=== PATIENT | male | born 1955 | race Caucasian/White ===

== ENCOUNTER 2021-11-03 18:40 | Inpatient (IN) | payer MEDICARE ==
[~2021-11-03] VITALS: Ht 175.3 cm; Wt 96.6 kg
[2021-11-03] MEDS ORDERED: MORPHINE SULFATE INJ 2 MG/ML DISP.SYRIN IV ONE (19:00)
[2021-11-03] MEDS ORDERED: IV NS 0.9% 1,000 ML BAG IV ONE (19:00)
[2021-11-03] MEDS ORDERED: ONDANSETRON HCL/PF 4 MG/2 ML VIAL IVP ONE (19:00)
--- NOTE | 2021-11-03 19:00 | NUR ---
[id number] from home, c/o abd pain since yesterday worst today +nausea. On room air, breathing normally and unalbored. Connected to the monitor and pulse ox. Kept comfortable, will continue to monitor and pulse ox. kept comfortable, will continue to monitor accordingly.
[2021-11-03] MEDS ORDERED: MORPHINE SULFATE INJ 4 MG/ML DISP.SYRIN ONE (19:10)
[2021-11-03] MEDS ORDERED: ONDANSETRON HCL/PF 4 MG/2 ML VIAL ONE (19:10)
[2021-11-03 20:40] LABS: BASOPHILS % (AUTO) 0.2 % (0.0-2.0); HEMATOCRIT 39 % (39-51); HEMOGLOBIN 12.9 g/dL (13.5-17.5); LYMPHOCYTES # (AUTO) 0.3 K/uL (0.8-4.8); MEAN CORPUSCULAR HGB CONC 33 g/dl (31.0-36.0); MEAN CORPUSCULAR VOLUME 96 fL (80-96); MONOCYTES # (AUTO) 0.1 K/uL (0.1-1.30); NEUTROPHILS % (AUTO) 96.8 % (43.0-81.0); PLATELET COUNT (AUTO) 208 K/uL (150-450); RED BLOOD CELL COUNT(AUTO) 4.02 MIL/uL (4.5-6.0); WHITE BLOOD COUNT (AUTO) 13.4 K/uL (4.3-11.0)
[2021-11-03] MEDS ORDERED: HYDR-4209 PO (21:44)
[2021-11-03 21:50] LABS: ALBUMIN 3.2 g/dL (3.4-5.0); BILIRUBIN,DIRECT 5.5 mg/dL (0.0-0.2); CREATININE 2.3 mg/dL (0.6-1.3); POTASSIUM 4.1 mmol/L (3.5-5.1); TOTAL PROTEIN, SERUM 7.4 g/dL (6.4-8.2)
[2021-11-03 22:20] LABS: CALCIUM, SERUM 10.5 mg/dL (8.5-10.1)
[2021-11-03 22:21] LABS: BAND % (MANUAL) 9 % (0.0-5.0); LYMPHOCYTES % (MANUAL) 4 % (16-48); NEUTROPHILS % (MANUAL) 87 (42-76)
[2021-11-03] MEDS ORDERED: PIPERACILLIN /TAZOBACTAM 3.375 G in IV D5W 50 ML IV ONE (22:30)
[2021-11-03] MEDS ORDERED: PIPERACILLIN /TAZOBACTAM 3.375 G VIAL IV ONE (22:35)
--- NOTE | 2021-11-03 22:54 | NUR ---
covid swab collected and sent to lab.
[2021-11-04] MEDS ORDERED: hydrALAZINE HCL IV 20 MG VIAL IV PRN
[2021-11-04] MEDS ORDERED: ACETAMINOPHEN 325 MG TABLET PO PRN
[2021-11-04] MEDS ORDERED: ONDANSETRON HCL/PF 4 MG/2 ML VIAL IVP PRN
[2021-11-04] MEDS ORDERED: TRAM50TA2 PO (00:07)
[2021-11-04] MEDS ORDERED: CHLO25TA2 PO (00:07)
[2021-11-04] MEDS ORDERED: BENA40TA8 PO (00:07)
[2021-11-04] MEDS ORDERED: ATOR20TA PO (00:07)
[2021-11-04] MEDS ORDERED: AMLO-212 PO (00:07)
[2021-11-04] MEDS ORDERED: IV NS 0.9% 1,000 ML BAG IV ONE (00:30)
--- NOTE | 2021-11-04 00:43 | NUR ---
room 320-1
--- NOTE | 2021-11-04 00:48 | NUR ---
report given to megan MENDIOLA to continue care.
[2021-11-04] MEDS ORDERED: CEFEPIME 1 GM in IV D5W 50 ML IV ONE (01:00)
--- NOTE | 2021-11-04 02:00 | NUR ---
RN NOTE (RECEIVING FROM ER) PATIENT ARRIVED TO THE UNIT VIA GURNEY. PATIENT STABLE. A/OX4. NO S/S OF DISTRESS, BREATHING WITYHOUT DIFFICULTY ON ROOM AIR. R-HAND #22 INTACT AND PATENT. SAFETY MEASURES IN PLACE: BED LOCKED AND AT LOWEST POSITION, RAILS UP X2, CALL CERDA WITHIN REACH. HE WAS ABLE TO AMBULATE W/O DIFFICULTLY TO HIS BED FROM [facility]. VS WNL. ID BAND PLACED ON PATIENT. PATIENT GIVEN CALL CERDA AND INSTRUCTED ON ITS USE. PATIENT ORIENTED TO THE UNIT. ALL BELONGINGS ACCOUNTED FOR, LOGGED INTO SHEET, AND PLACED IN CHART. WILL CONTINUE TO MONITOR PATIENT.
--- NOTE | 2021-11-04 02:05 | NUR ---
wheeled patient via gurney accompanied by emt in no distress. RN assigned at bedside to assume care.
[2021-11-04] MEDS: IV NS 0.9% 1,000 ML IV SCH ×2 (02:44→14:05)
[2021-11-04] MEDS: MORPHINE SULFATE INJ 2 MG/ML DISP.SYRIN IV PRN ×3 (03:10→16:13)
[2021-11-04 04:19] VITALS: BP 139/72
--- NOTE | 2021-11-04 06:40 | NUR ---
RN CLOSING NOTE PATIENT AWAKE IN BED. A/OX4. NO S/S OF DISTRESS, BREATHING WITHOUT DIFFICULTY ON ROOM AIR. R-WRIST #22 SL INTACT AND PATENT; R-HAND #20 INTACT AND PATENT W/ NS 75ML/HR. SAFETY MEASURES IN PLACE: BED LOCKED AND AT LOWEST POSITION, RAILS UP X2, CALL CERDA WITHIN REACH. WILL ENDORSE TO NEXT SHIFT FOR CARMELITA.
--- NOTE | 2021-11-04 07:27 | NUR ---
MS RN OPENING NOTE RECEIVED PT AWAKE, RESTING IN BED. PT IS A/O X4, ABLE TO MAKE NEEDS KNOWN. ON RA, TOLERATING WELL. NO SOB NOTED. NOT IN ANY SIGN OF RESPIRATORY DISTRESS. IV ACCESS IN RIGHT WRIST G #22 SALINE LOCK, INTACT AND PATENT. RIGHT HAND G #20 INTACT AND PATENT WITH NS INFUSING AT 75ML/HR. SAFETY MEASURES IN PLACE: BED IN LOWEST AND LOCKED POSITION, SIDE RAILS UPX2, AND CALL LIGHT WITHIN REACH. WILL CONTINUE TO MONITOR PT.
[2021-11-04 07:38] LABS: BILIRUBIN,URINE MODERATE (NEGATIVE); COLOR,URINE DARK YELLOW (YELLOW); LEUKOCYTE ESTERASE ,URINE NEGATIVE (NEGATIVE); NITRITE, URINE NEGATIVE (NEGATIVE); PH,URINE 5.5 (5.0-8.0); PROTEIN,URINE NEGATIVE (NEGATIVE); UGLUCOSE NEGATIVE (NEGATIVE)
[2021-11-04 08:00] VITALS: BP 112/98
[2021-11-04 08:36] LABS: EOSINOPHILS % (AUTO) 0.1 % (0.0-6.0); HEMATOCRIT 33 % (39-51); HEMOGLOBIN 10.6 g/dL (13.5-17.5); LYMPHOCYTES % (AUTO) 6.3 % (20.0-44.0); MEAN CORPUSCULAR HGB CONC 33 g/dl (31.0-36.0); MEAN CORPUSCULAR VOLUME 96 fL (80-96); MONOCYTES % (AUTO) 8.8 % (2.0-12.0); NEUTROPHILS % (AUTO) 84.7 % (43.0-81.0); PLATELET COUNT (AUTO) 188 K/uL (150-450); WHITE BLOOD COUNT (AUTO) 21.9 K/uL (4.3-11.0)
[2021-11-04 08:37] LABS: BASOPHILS % (AUTO) 0.1 % (0.0-2.0); LYMPHOCYTES # (AUTO) 1.4 K/uL (0.8-4.8); MONOCYTES # (AUTO) 1.9 K/uL (0.1-1.30); NEUTROPHILS # (AUTO) 18.6 K/uL (1.8-8.9)
[2021-11-04 08:52] LABS: ALBUMIN 2.5 g/dL (3.4-5.0); BILIRUBIN,TOTAL 5.7 mg/dL (0.2-1.0); CALCIUM, SERUM 9.2 mg/dL (8.5-10.1); CREATININE 2.1 mg/dL (0.6-1.3); MAGNESIUM 1.7 mg/dL (1.8-2.4); PHOSPHORUS 2.9 mg/dL (2.5-4.9); POTASSIUM 4.4 mmol/L (3.5-5.1); TOTAL PROTEIN, SERUM 6.1 g/dL (6.4-8.2)
[2021-11-04] MEDS: AMLODIPINE BESYLATE 5 MG TABLET PO SCH (09:00)
[2021-11-04 09:21] LABS: BACTERIA,URINE Few /HPF (None Seen); RBC,URINE 0-2 /HPF (0-2); SQUAMOUS EPITHELIAL CELL,UR Few /HPF (None Seen); WBC,URINE 0-2 /HPF (0-3)
[2021-11-04] MEDS: HEPARIN SODIUM, PORCINE 5000 UNITS/1 ML VIAL SQ SCH ×2 (09:21→21:08)
--- NOTE | 2021-11-04 09:25 | NUR ---
RN NOTE PT C/O ABDOMINAL PAIN WITH PAIN SCALE LEVEL OF 8/10 AND REQUESTED FOR MORPHINE. MORPHINE 2MG IVP ADMINISTERED ORDERED PRN Q4H. WILL MONITOR AND REASSESS PT.
[2021-11-04] MEDS ORDERED: Magnesium 1GM/D5W 100ML PREMIX 100 ML IV SCH (10:00)
[2021-11-04] MEDS ORDERED: IV NS 0.9% 1,000 ML IV ONE (10:00)
[2021-11-04 16:00] VITALS: BP 128/67
[2021-11-04] MEDS ORDERED: GADOTERATE MEGLUMINE 10 MMOL/20 ML VIAL IV ONE (17:11)
--- NOTE | 2021-11-04 19:43 | NUR ---
RN OPENING NOTE PATIENT AWAKE IN BED. A/OX4. NO S/S OF DISTRESS, BREATHING WITHOUT DIFFICULTY ON ROOM AIR. R-WRIST SL INTACT AND PATENT; R-HAND #20 INTACT AND PATENT W/NS 75ML/HR. SAFETY MEASURES IN PLACE: BED LOCKED IN PLACE AND AT LOWEST POSITION, RAILS UP X2, CALL CERDA WITHIN REACH. WILL CONTINUE TO MONITOR PATIENT.
--- NOTE | 2021-11-04 19:44 | NUR ---
MS RN CLOSING NOTE PT AWAKE, RESTING IN BED. PT IS A/O X4, ABLE TO MAKE NEEDS KNOWN. ON RA, TOLERATING WELL. NO SOB NOTED. NOT IN ANY SIGN OF RESPIRATORY DISTRESS. IV ACCESS IN RIGHT WRIST G #22 SALINE LOCK, INTACT AND PATENT. RIGHT HAND G #20 INTACT AND PATENT WITH NS INFUSING AT 75ML/HR. ALL NEEDS ATTENDED. KEPT CLEAN AND COMFORTABLE. SAFETY MEASURES IN PLACE: BED IN LOWEST AND LOCKED POSITION, SIDE RAILS UPX2, AND CALL LIGHT WITHIN REACH. ENDORSED TO EQUIPMENT COORDINATOR NURSE FOR CARMELITA.
[2021-11-04 20:00] VITALS: BP 128/64
[2021-11-04 20:57] LABS: IRON, SERUM 63 ug/dl (50-175); TOTAL IRON BINDING CAPACITY 219 ug/dl (250-450)
[2021-11-04] MEDS: CEFEPIME 2 GM in IV D5W 100 ML IV SCH (21:07)
[2021-11-04 22:45] LABS: FERRITIN 423 ng/mL (8-388)
[2021-11-05] MEDS: IV NS 0.9% 1,000 ML IV SCH ×2 (02:06→17:30)
--- NOTE | 2021-11-05 03:50 | NUR ---
RN NOTE LAB CALLED W/ RESULTS OF 1ST BOTTLE BLOOD CULTURES. GRAM NEGATIVE RODS. PATIENT IS ALREADY ON MAXIPIME 2GM Q24HR. ON-CALL KARLEE TATE, NOTIFIED WITH OF ALL INFORMATION. AWAITING ANY POSSIBLE ORDERS. PATIENT STABLE; WILL CONTINUE TO MONITOR PATIENT.
--- NOTE | 2021-11-05 04:12 | NUR ---
RN NOTE ON-CALL DOMONIQUE TATE, STATED NO NEW ORDERS.
--- NOTE | 2021-11-05 06:26 | NUR ---
RN CLOSING NOTE PATIENT ASLEEP IN BED. A/OX4. NO S/S OF DISTRESS, BREATHING WITHOUT DIFFICULTY ON ROOM AIR. R-HAND #20 INTACT AND PATENT W/ NS 75ML/HR; R-WRIST #22 SL INTACT AND PATENT. SAFETY MEASURES IN PLACE: BED LOCKED AND AT LOWEST POSITION, RAILS UP X2, CALL CERDA WITHIN REACH. WILL ENDORSE TO NEXT SHIFT FOR CARMELITA.
[2021-11-05 06:46] LABS: BASOPHILS % (AUTO) 0.2 % (0.0-2.0); EOSINOPHILS % (AUTO) 0.3 % (0.0-6.0); HEMATOCRIT 30 % (39-51); HEMOGLOBIN 10.2 g/dL (13.5-17.5); LYMPHOCYTES # (AUTO) 1.6 K/uL (0.8-4.8); LYMPHOCYTES % (AUTO) 12.7 % (20.0-44.0); MEAN CORPUSCULAR HGB CONC 34 g/dl (31.0-36.0); MEAN CORPUSCULAR VOLUME 95 fL (80-96); MONOCYTES # (AUTO) 0.8 K/uL (0.1-1.30); MONOCYTES % (AUTO) 6.7 % (2.0-12.0); NEUTROPHILS % (AUTO) 80.1 % (43.0-81.0); PLATELET COUNT (AUTO) 194 K/uL (150-450); RED BLOOD CELL COUNT(AUTO) 3.19 MIL/uL (4.5-6.0); WHITE BLOOD COUNT (AUTO) 12.5 K/uL (4.3-11.0)
[2021-11-05 06:48] LABS: CREATININE, URINE 73.9 MG/DL (30.0-125.0)
[2021-11-05 06:53] LABS: CALCIUM, SERUM 9.7 mg/dL (8.5-10.1); CREATININE 1.4 mg/dL (0.6-1.3); POTASSIUM 4.2 mmol/L (3.5-5.1)
[2021-11-05 06:59] LABS: ALBUMIN 2.4 g/dL (3.4-5.0); BILIRUBIN,TOTAL 1.4 mg/dL (0.2-1.0)
[2021-11-05 08:00] VITALS: BP 143/83
[2021-11-05] MEDS: HEPARIN SODIUM, PORCINE 5000 UNITS/1 ML VIAL SQ SCH ×2 (08:12→21:49)
[2021-11-05] MEDS: AMLODIPINE BESYLATE 5 MG TABLET PO SCH (08:13)
[2021-11-05] MEDS: MORPHINE SULFATE INJ 2 MG/ML DISP.SYRIN IV PRN ×3 (08:14→20:25)
[2021-11-05 08:15] LABS: PHOSPHORUS 2.9 mg/dL (2.5-4.9)
[2021-11-05 08:33] LABS: MAGNESIUM 2.2 mg/dL (1.8-2.4)
[2021-11-05 15:33] VITALS: BP 144/77
--- NOTE | 2021-11-05 18:50 | NUR ---
RN NOTE RECEIVED A CALL FROM KAREN VALERO NP AND ORDERED ATIVAN 1MG IVP X1 TIME DOSE PRIOR TO MRCP PROCEDURE. PT WILL HAVE THE MRCP DONE TOMORROW.
[2021-11-05] MEDS ORDERED: LORAZEPAM INJ 2 MG/ML VIAL IV PRN (19:00)
--- NOTE | 2021-11-05 19:27 | NUR ---
MS RN CLOSING NOTE PT AWAKE, RESTING IN BED. PT IS A/O X4, ABLE TO MAKE NEEDS KNOWN. ON RA, TOLERATING WELL. NO SOB NOTED. NOT IN ANY SIGN OF RESPIRATORY DISTRESS. IV ACCESS IN LFA G #22 INTACT AND PATENT WITH NS INFUSING AT 75ML/HR. ALL NEEDS ATTENDED. KEPT CLEAN AND COMFORTABLE. SAFETY MEASURES IN PLACE: BED IN LOWEST AND LOCKED POSITION, SIDE RAILS UPX2, AND CALL LIGHT WITHIN REACH. ENDORSED TO PEN OR PENCIL ASSEMBLY MACHINE OPERATOR NURSE FOR CARMELITA.
[2021-11-05 20:00] VITALS: BP 134/82
[2021-11-05] MEDS: CEFEPIME 2 GM in IV D5W 100 ML IV SCH (21:48)
[2021-11-06 06:04] LABS: BASOPHILS % (AUTO) 0.3 % (0.0-2.0); HEMATOCRIT 33 % (39-51); HEMOGLOBIN 10.8 g/dL (13.5-17.5); LYMPHOCYTES # (AUTO) 2.2 K/uL (0.8-4.8); LYMPHOCYTES % (AUTO) 20.1 % (20.0-44.0); MEAN CORPUSCULAR HGB CONC 33 g/dl (31.0-36.0); MEAN CORPUSCULAR VOLUME 96 fL (80-96); MONOCYTES # (AUTO) 0.8 K/uL (0.1-1.30); MONOCYTES % (AUTO) 7.6 % (2.0-12.0); NEUTROPHILS # (AUTO) 7.8 K/uL (1.8-8.9); PLATELET COUNT (AUTO) 247 K/uL (150-450); RED BLOOD CELL COUNT(AUTO) 3.42 MIL/uL (4.5-6.0)
--- NOTE | 2021-11-06 06:41 | NUR ---
MS RN CLOSING NOTE PATIENT SLEEPING IN BED, ALERT/ORIENTED X 4, PT ABLE TO MAKE NEEDS KNOWN. PATIENT STABLE ON RA, NO S/S OF DISTRESS OR SOB NOTED, BREATHING EVEN AND UNLABORED. PATIENT HAVING MRCP TODAY, KEPT NPO SINCE MIDNIGHT, PATIENT TO BE GIVEN ATIVAN PRIOR TO MRCP. LEFT FORARM IV ACCESS INTACT AND SALINE LOCKED. MEDICATIONS GIVEN ORDERED, PT NEEDS MET THROUGHOUT SHIFT, NO SIGNIFICANT CHANGES. PATIENT DID NOT HAVE BM THIS SHIFT FOR OCCULT BLOOD STOOL SAMPLE. SAFETY MEASURES IN PLACE: CALL LIGHT WITHIN REACH, SIDE RAILS UP X 2, BED LOCKED IN LOWEST POSITION. WILL ENDORSE TO DAY SHIFT NURSE FOR CONTINUITY OF CARE
[2021-11-06 06:59] LABS: ALBUMIN 2.5 g/dL (3.4-5.0); BILIRUBIN,DIRECT 0.7 mg/dL (0.0-0.2); CALCIUM, SERUM 9.9 mg/dL (8.5-10.1); CREATININE 1.3 mg/dL (0.6-1.3); TOTAL PROTEIN, SERUM 6.1 g/dL (6.4-8.2)
[2021-11-06 07:06] LABS: IMMUNOGLOBULIN A, SERUM 127 mg/dL (61-437); IMMUNOGLOBULIN G, SERUM 685 mg/dL (603-1613); IMMUNOGLOBULIN M, SERUM 87 mg/dL (20-172)
[2021-11-06 07:19] LABS: MAGNESIUM 1.8 mg/dL (1.8-2.4); PHOSPHORUS 3.1 mg/dL (2.5-4.9)
--- NOTE | 2021-11-06 07:45 | NUR ---
RN OPENING NOTE PATIENT AWAKE IN BED RESTING. A/O X4. NO S/S OF PAIN NOTED AT THIS TIME. ON ROOM AIR, NO DISTRESS OR SHORTNESS OF BREATH NOTED. IV ACCESS LFA #22G INTACT, PATENT AND FLUSHING WELL. FALL AND SAFETY MEASURES IN PLACE, BED ALARM ON, BED IN LOW AND LOCK POSITION, CALL LIGHT AND TABLE WITHIN EASY REACH, SIDE RAILS UP X2. WILL CONTINUE TO MONITOR
[2021-11-06 08:06] LABS: AFP, TUMOR MARKER 1.5 ng/mL (0.0-8.4); CARBOHYDRATE AG 19-9 619 U/mL (0-35)
[2021-11-06 08:07] VITALS: BP 158/83
[2021-11-06] MEDS: AMLODIPINE BESYLATE 5 MG TABLET PO SCH (08:15)
[2021-11-06] MEDS: MORPHINE SULFATE INJ 2 MG/ML DISP.SYRIN IV PRN ×2 (08:16→20:41)
[2021-11-06] MEDS: HEPARIN SODIUM, PORCINE 5000 UNITS/1 ML VIAL SQ SCH ×2 (08:17→21:00)
[2021-11-06 10:07] LABS: *SPE A/G RATIO 0.9 (0.7-1.7); *SPE ALPHA-1-GLOBULIN 0.4 g/dL (0.0-0.4); *SPE ALPHA-2-GLOBULIN 0.9 g/dL (0.4-1.0); *SPE BETA GLOBULIN 0.8 g/dL (0.7-1.3); *SPE M-SPIKE Not Observed g/dL (Not Observed)
[2021-11-06 12:57] LABS: BAND % (MANUAL) 1 % (0.0-5.0); EOSINOPHILS % (MANUAL) 1 % (0-4); LYMPHOCYTES % (MANUAL) 25 % (16-48); MONOCYTES % (MANUAL) 9 % (0-11.0); NEUTROPHILS % (MANUAL) 64 (42-76)
[2021-11-06 16:12] VITALS: BP 146/78
--- NOTE | 2021-11-06 18:56 | NUR ---
RN CLOSING NOTE PATIENT AWAKE IN BED RESTING. A/O X4. NO S/S OF PAIN NOTED AT THIS TIME. ON ROOM AIR, NO DISTRESS OR SHORTNESS OF BREATH NOTED. IV ACCESS LFA #22G INTACT, PATENT AND FLUSHING WELL. PATIENT SHOULD BE NPO AFTER MIDNIGHT TODAY. HOLD HEPARIN DOSE PRIOR US GUIDED BIOPSY. FALL AND SAFETY MEASURES IN PLACE, BED ALARM ON, BED IN LOW AND LOCK POSITION, CALL LIGHT AND TABLE WITHIN EASY REACH, SIDE RAILS UP X2. WILL ENDORSE TO AUTOMOBILE BUMPER STRAIGHTENER.
[2021-11-06 20:00] VITALS: BP 135/76
--- NOTE | 2021-11-06 20:02 | NUR ---
RN OPENING NOTE PATIENT AWAKE IN BED WITH PARTNER AT BEDSIDE. NO S/S OF DISTRESS, BREATHING WITHOUT DIFFICULTY ON ROOM, LFA #22 SL INTACT AND PATENT. SAFETY MEASURES IN PLACE: BED LOCKED AND AT LOWEST POSITION, RAILS UP X2, CALL CERDA WITHIN REACH. WILL CONTINUE TO MONITOR PATIENT.
[2021-11-06] MEDS ORDERED: LEVOFLOXACIN 500 MG /D5W 100ML 500 MG in PREMIX 1 EA IV SCH (21:00)
[2021-11-06] MEDS ORDERED: CEFEPIME 2 GM in IV D5W 100 ML IV SCH (21:00)
--- NOTE | 2021-11-06 21:43 | NUR ---
RN NOTE PATIENT'S LFA #22 BEGAN TO LEAK AND WAS UNSALVAGEABLE. IV WAS REMOVED AND A NEW IV INSERTED, LFA #22 - BUT AT DIFFERENT SITE OF LFA. NO BLEEDING, INFILTRATION, OR INFLAMMATION PRESENT. PATIENT STATES NO PAIN AT SITE. ALL ITEMS REMOVED INCLUDING CATH. PATIENT STABLE; WILL CONTINUE TO MONITOR PATIENT.
[2021-11-07 05:48] LABS: BASOPHILS % (AUTO) 0.4 % (0.0-2.0); EOSINOPHILS % (AUTO) 1.2 % (0.0-6.0); HEMATOCRIT 34 % (39-51); HEMOGLOBIN 11.3 g/dL (13.5-17.5); LYMPHOCYTES # (AUTO) 1.8 K/uL (0.8-4.8); LYMPHOCYTES % (AUTO) 21.2 % (20.0-44.0); MEAN CORPUSCULAR HGB CONC 34 g/dl (31.0-36.0); MEAN CORPUSCULAR VOLUME 95 fL (80-96); MONOCYTES # (AUTO) 0.7 K/uL (0.1-1.30); MONOCYTES % (AUTO) 8.3 % (2.0-12.0); NEUTROPHILS % (AUTO) 68.9 % (43.0-81.0); PLATELET COUNT (AUTO) 275 K/uL (150-450); RED BLOOD CELL COUNT(AUTO) 3.53 MIL/uL (4.5-6.0); WHITE BLOOD COUNT (AUTO) 8.7 K/uL (4.3-11.0)
[2021-11-07 06:06] LABS: ALBUMIN 2.6 g/dL (3.4-5.0); BILIRUBIN,DIRECT 0.6 mg/dL (0.0-0.2); BILIRUBIN,TOTAL 0.9 mg/dL (0.2-1.0); CALCIUM, SERUM 10.2 mg/dL (8.5-10.1); CREATININE 1.3 mg/dL (0.6-1.3); POTASSIUM 4.2 mmol/L (3.5-5.1); TOTAL PROTEIN, SERUM 6.5 g/dL (6.4-8.2)
[2021-11-07 06:09] LABS: MAGNESIUM 1.9 mg/dL (1.8-2.4); PHOSPHORUS 3.6 mg/dL (2.5-4.9)
--- NOTE | 2021-11-07 06:57 | NUR ---
RN CLOSING NOTE PATIENT AWAKE IN BED. A/OX4. NO S/S OF DISTRESS, BREATHING WITHOUT DIFFICULTY ON ROOM AIR. LFA #22 SL INTACT AND PATENT. SAFETY MEASURES IN PLACE: BED LOCKED AND AT LOWEST POSITION, RAILS UP X2, CALL CERDA WITHIN REACH. WILL ENDORSE TO NEXT SHIFT FOR CARMELITA.
--- NOTE | 2021-11-07 07:35 | NUR ---
RN OPENING NOTES RECEIVED PATIENT IN BED, AOX4, CALM, VERBAL, AMBULATORY, ABLE TO MAKE NEEDS KNOWN. PATIENT IS ON ROOM AIR TOLERATING WELL WITH NO SIGNS AND SYMPTOMS OF RESPIRATORY DISTRESS, PATIENT HAS LEFT FOREARM G#22 IV LINE, SALINE LOCKED, PATENT, INFUSING WELL. NO COMPLAINTS OF NAUSEA/VOMITTING. PATIENT DENIES PAIN AT THIS TIME. SAFETY MEASURES IN PLACE: BED AT LOWEST POSITION, SIDE RAILS UP, TRAY TABLE AND CALL LIGHT WITHIN REACH. PATIENT IS FOR ULTRASOUND GUIDED NEEDLE BIOPSY OF THE LIVER. NPO SINCE MIDNIGHT PER NIGHT RN. WILL CONTINUE TO MONITOR DURING MY SHIFT.
--- NOTE | 2021-11-07 07:50 | NUR ---
RN NOTES RECEIVED A CALL FROM [facility] WITH [facility] DEPT CONFIRMING US GUIDED NEEDLE BIOPSY OF THE LIVER TODAY, CONFIRMED NO BLOOD THINNERS GIVEN SINCE YESTERDAY MORNING, WILL CALL ONCE READY
[2021-11-07] MEDS: HEPARIN SODIUM, PORCINE 5000 UNITS/1 ML VIAL SQ SCH (08:10)
[2021-11-07] MEDS: AMLODIPINE BESYLATE 5 MG TABLET PO SCH (08:19)
[2021-11-07] MEDS: MORPHINE SULFATE INJ 2 MG/ML DISP.SYRIN IV PRN ×2 (08:19→15:57)
[2021-11-07 08:34] VITALS: BP 140/86
--- NOTE | 2021-11-07 08:42 | NUR ---
RN NOTES PATIENT COMPLAINING OF 7-8 ABDOMINAL PAIN, REQUESTED FOR PAIN MEDICATION - GIVEN MORPHINE 2MG VIA IV PUSH. WILL CONTINUE TO MONITOR.
--- NOTE | 2021-11-07 08:50 | NUR ---
RN NOTES REASSESSMENT DONE AFTER 30 MINS POST MORPHINE ADMINISTRATION AND PATIENT REPORTS THAT THE PAIN IS STILL THE SAME. WILL CONTINUE TO MONITOR.
[2021-11-07 10:16] LABS: BILIRUBIN,DIRECT 0.6 mg/dL (0.0-0.2); BILIRUBIN,TOTAL 0.9 mg/dL (0.2-1.0)
--- NOTE | 2021-11-07 10:30 | NUR ---
RN NOTES BOBY VALERO IS AT BEDSIDE WITH PATIENT.
--- NOTE | 2021-11-07 13:38 | NUR ---
[employer] OFFICER LEFT MESSAGES FOR PATHOLOGY DEP. PATHOLOGIST NOT AVAILABLE FOR BIOPSY. DR. COOL AND STEVE MENDIOLA WERE INFORMED. PER DR. COOL THE BIOPSY WILL BE DONE ON WEDNESDAY. MARLENA BLACKWELL
--- NOTE | 2021-11-07 15:27 | NUR ---
RN NOTES RECEIVED A CALL FROM AMBER FROM [facility] THAT PATIENT WILL HAVE ERCP THIS EVENING AROUND 6-7 PM. CONFIRMED NPO SINCE 10:30. WILL HAVE THE CONSENTS SIGNED.
--- NOTE | 2021-11-07 16:00 | NUR ---
RN NOTES RECEIVED A CALL FROM [employer] THAT THE ERCP WONT BE HAPPENING TONIGHT BECAUSE OF THE REJECTION FROM THE ANESTHESIOLOGIST PATIENT HAD GASTRIC BYPASS IN THE PAST. INFORM BOBY VALERO OF THE SITUATION, SHE CALLED THE PATIENT AND INFORMED HIM THAT WE WONT BE ABLE TO PUSH THROUGH WITH THE SURGERY. PATIENT UNDERSTOOD. DISCHARGE ORDER GIVEN [place] BOBY VALERO OVER THE PHONE AND CARRIED OUT.
[2021-11-07 16:16] VITALS: BP 128/76
--- NOTE | 2021-11-07 17:40 | NUR ---
MS RADIO JOURNALIST NOTE PT DISCHARGED TO HOME IN STABLE CONDITION. PT A/O X4, ABLE TO MAKE NEEDS KNOWN. ON RA, TOLERATING WELL WITH SPO2 98%. NO SOB NOTED. NOT IN ANY SIGN OF RESPIRATORY DISTRESS. VITAL SIGNS TAKEN, STABLE, AND RECORDED. PT'S SKIN INTACT. DENIES PAIN OR DISCOMFORT AT THIS TIME. ALL BELONGINGS ACCOUNTED FOR. DISCHARGE INSTRUCTIONS AND HEALTH TEACHINGS GIVEN TO PATIENT HIMSELF. VERBALIZED UNDERSTANDING. IV ACCESS IN LFA G#22 REMOVED WITH NO ACTIVE BLEEDING NOTED. DRY PRESSURE DRESSING APPLIED AT SITE. PT LEFT THE UNIT AT 1740 ON [address] WITH . MD AND CHARGE NURSE AWARE OF THE DISCHARGE.
== END 2021-11-07 18:08 | disposition home or self-care (01) | DRG 444 ==
LOC: ER 18:45 → MED 11-04 00:04
PROVIDERS: ADMIT Internal Medicine; ATTEND Registered Nurse
DX: K80.50 Calculus of bile duct without cholangitis or cholecystitis without obstruction (principal); J15.9 Unspecified bacterial pneumonia; N17.0 Acute kidney failure with tubular necrosis; E44.1 Mild protein-calorie malnutrition; E87.2 Acidosis; I12.9 Hypertensive chronic kidney disease with stage 1 through stage 4 chronic kidney disease, or unspecified chronic kidney disease; N18.9 Chronic kidney disease, unspecified; Z20.822 Contact with and (suspected) exposure to COVID-19; Z79.899 Other long term (current) drug therapy; E80.6 Other disorders of bilirubin metabolism; R74.01 Elevation of levels of liver transaminase levels; E78.5 Hyperlipidemia, unspecified; E88.09 Other disorders of plasma-protein metabolism, not elsewhere classified; Z98.84 Bariatric surgery status; N20.0 Calculus of kidney; N28.1 Cyst of kidney, acquired; K76.9 Liver disease, unspecified; K44.9 Diaphragmatic hernia without obstruction or gangrene; K42.9 Umbilical hernia without obstruction or gangrene; G89.4 Chronic pain syndrome; F17.200 Nicotine dependence, unspecified, uncomplicated; E66.9 Obesity, unspecified; Z68.31 Body mass index [BMI] 31.0-31.9, adult; D35.02 Benign neoplasm of left adrenal gland; K86.89 Other specified diseases of pancreas; Z80.3 Family history of malignant neoplasm of breast; Z80.8 Family history of malignant neoplasm of other organs or systems; Z96.642 Presence of left artificial hip joint; D64.9 Anemia, unspecified
CPT/HCPCS: 36415; 71045-TC; 71250-TC; 74181-TC; 74183; 76700-TC; 80048-TC; 80053-TC; 80076-TC; 81001; 82105; 82247-TC; 82248-TC; 82378; 82570-TC; 82607-TC; 82728-TC; 82784; 83540-TC; 83605-TC; 83690-TC; 83735-TC; 84100-TC; 84155; 84165; 84300-TC; 85025-TC; 85610-TC; 85730-TC; 86301; 86334; 86803; 87040-TC; 87081-TC; 87086-TC; 87186-TC; 87340; A4216; A9575; C9803; G0378; J0692; J1644; J1956; J2060; J2270; J2405; J2543; J3475; J7030; J7040; J7060